=== PATIENT | male | born 1965 | race Two or more races ===

== ENCOUNTER → 2016-10-03 | Day surgery (SDC) | payer BC ==
--- NOTE | 2016-10-02 18:32 | Pre-Procedure Note/Attestation ---
Pre-Procedure Note/Attestation Complete Prior to Procedure Planned Procedure: right Procedure Narrative: Tonsillectomy Indications for Procedure Pre-Operative Diagnosis: Hypertrophied right tonsil Attestation I attest that I discussed the nature of the procedure; its benefits; risks and complications; and alternatives (and the risks and benefits of such alternatives ), prior to the procedure, with the patient (or the patient's legal security representative). I attest that, if there was a reasonable possibility of needing a blood transfusion, the patient (or the patient's legal security representative) was given the [facility] standardized written summary, pursuant to the [place] [employer] Blood Safety Act ([place] Health and Safety Code # 1645, as amended). I attest that I re-evaluated the patient just prior to the surgery and that there has been no change in the patient's H&P, which has been completed by pts. PMD and sent via fax by my staff at about 4PM today. I will cosign for Dr. Ana Allan MD. EMORY GARCIA Oct 02, 2016 18:32
[~2016-10-03] VITALS: Ht 175.3 cm; Wt 72.6 kg
[2016-10-03] VITALS (8 sets, daily range): BP systolic 114–144; BP diastolic 62–99
[~2016-10-03] MED LIST: Atropine Inj 1mg/10ml Syr IV PRN; Bupivacaine 0.5% Inj 30 ml vial INJ ONE; Bupivacaine w/Epi 0.5% 30ml Vial INJ ONE; Dexamethasone 4mg/ml vial IVP ONE; DiphenhydrAMINE 50mg/ml Inj IVP PRN; HYDROmorphone 1mg/ml Carpuject SUBQ PRN; Hydrogen Peroxide 120ml Bottle TOPIC ONE; Hydromorphone 0.5mg/0.5ml inj IVP PRN; Ketorolac 30mg Inj IV PRN; Ketorolac 60mg Inj IV PRN; LORazepam Inj 2mg/ml 1ml IV PRN; LR 1000ml 1,000 ML IVLG SCH; Labetalol 5mg/ml 20ml vial IV PRN; Lidocaine 1% 10mg/ml/Epi 0.005mg/ml 30ml vial INJ ONE; Meperidine 25mg/ml Inj IV PRN; Metoclopramide 10mg/2ml Inj IVP PRN; Midazolam 2mg/2ml Inj IVP PRN; NKM; NS Irrig 1000ml IRRIG ONE; Norco 5mg/325mg tab ORAL PRN; Norco 7.5mg/325mg tab ORAL PRN; Oxycodone/Acetaminophen 5-325 ORAL PRN; Thrombin 5000 units TOPIC ONE; ceFAZolin sod 1 GM in D5W 55 ML IV ONE; fentaNYL 100 mcg/2 mL IV PRN
--- NOTE | 2016-10-03 07:19 | Anethesia Preoperative Eval ---
Anesthesia Pre-op PMH/ROS General Date of Evaluation: Oct 03, 2016 Time of Evaluation: 07:31 Anesthesiologist: Charu ASA Score: ASA 2 Mallampati Score Class I : Soft palate, uvula, fauces, pillars visible Class II: Soft palate, uvula, fauces visible Class III: Soft palate, base of uvula visible Class IV: Only hard plate visible Mallampati Classification: Class II Surgeon: Alex Diagnosis: R Tonisillar Mass Surgical Procedure: R Tonsillar Biopsy Anesthesia History: none Family History: no anesthesia problems Allergies: Coded Allergies: GARLIC (Verified Adverse Reaction, Unknown, 10/02/16) upset astomach Medications: see eMAR Past Medical History Cardiovascular: Reports: arrhythmia - AFib Pulmonary: Reports: SIRI PSxH Narrative: Colonoscopies X3 Anesthesia Pre-op Phys. Exam Physician Exam Last Vital Signs Date Time Temp Pulse Resp B/P Pulse Ox O2 Delivery O2 Flow Rate FiO2 10/03/16 06:05 97.7 55 20 114/78 98 Room Air Constitutional: NAD Neurologic: CN 2-12 intact Cardiovascular: RRR Respiratory: CTA Gastrointestinal: S/NT/ND Airway Exam Mallampati Score: Class II MO: full ROM: full Teeth: intact Anesthesia Pre-op A/P Risk Assessment & Plan Assessment: ASA 2 Plan: GA, BIS, Glidescope Status Change Before Surgery: No Pre-Antibiotics Dru Gram Ancef IV Given Within 1 Hr of Incision: Yes Time Given: 07:46 Keenan Box MD Oct 03, 2016 07:19
--- NOTE | 2016-10-03 08:06 | Immediate Post-Op Evaluation ---
Immediate Post-Op Evalulation Immediate Post-Op Evalulation Procedure: R Tonsillectomy Date of Evaluation: Oct 03, 2016 Time of Evaluation: 08:50 IV Fluids: 600 LR Blood Products: 0 Estimated Blood Loss: 40 Urinary Output: 0 Blood Pressure Systolic: 127 Blood Pressure Diastolic: 77 Pulse Rate: 62 Respiratory Rate: 16 O2 Sat by Pulse Oximetry: 100 Temperature (Fahrenheit): 98.1 Pain Score (1-10): 2 Nausea: No Vomiting: No Complications 0 Patient Status: awake, reacts, patent, extubated, none Hydration Status: adequate Dru Gram Ancef IV Given Within 1 Hr of Incision: Yes Time Given: 07:46 Keenan Box MD Oct 03, 2016 08:06
--- NOTE | 2016-10-03 08:06 | 48 Hour Post Anesthesia Eval ---
Post Anesthesia Evaluation Procedure: R Tonsillectomy Date of Evaluation: Oct 03, 2016 Time of Evaluation: 11:57 Blood Pressure Systolic: 128 0: 78 Pulse Rate: 67 Respiratory Rate: 18 Temperature (Fahrenheit): 98.4 O2 Sat by Pulse Oximetry: 100 Airway: patent Nausea: No Vomiting: No Pain Intensity: 2 Hydration Status: adequate Cardiopulmonary Status: Stable Mental Status/LOC: patient returned to baseline Follow-up Care/Observations: 0 Post-Anesthesia Complications: 0 Follow-up care needed: ready to discharge Keenan Box MD Oct 03, 2016 08:06
--- NOTE | 2016-10-03 08:23 | Brief Operative Note ---
Immediate Post Operative Note Operative Note Pre-op Diagnosis: Hypertrophied right tonsil Procedure: right tonsilllectomy Post-op Diagnosis: pending results of frozen section Surgeon: Cristina Garcia Molecular Biology Professor: none Additional Surgeons: none Anesthesiologist: Charu Anesthesia: general Specimen: yes - right tonsil Complications: none Estimated Blood Loss: volume - 40 cc Packing: none Implant(s) used?: No EMORY GARCIA Oct 03, 2016 08:22
--- NOTE | 2016-10-03 08:25 | Discharge Instructions ---
Discharge Instructions Discharge Instructions Follow up with: Dr. Garcia next week-pt has appt already Diet: full liquid Resume Normal Activity?: No Activity: light activity Pneumonia Vaccine: pt refused vaccine Influenza Vaccine (Mar to Aug): pt refused vaccine Follow Up Orders pt has printed instructions given to him last week in office Return to Work/School on: October 17, 2016 For Surgical Patients Contact your physician for: bleeding, pain, tenderness, redness, swelling, yellowish discharge in the op. site For Congestive Heart Failure Reminder Report to your physician any weight gain of 5 pounds or more in one week. EMORY GARCIA Oct 03, 2016 08:25
--- NOTE | 2016-10-03 16:58 | Operative Note - Dictated ---
DATE OF OPERATION: 10/03/2016 SURGEON: Dmitry Johnson M.D. SHOEMAKER CUSTOM: None. ANESTHESIOLOGIST: Keenan Box M.D. ANESTHESIA: Oral endotracheal anesthesia. INDICATION FOR PROCEDURE: The patient with the unilaterally enlarged right tonsil, which has not calmed down over the course of three years ago. I actually had spoken to him three years ago about potentially removing this to make sure it is not a cancer. 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 PREOPERATIVE DIAGNOSIS: The patient with the unilaterally enlarged right tonsil, which has not calmed down over the course of three years ago. I actually had spoken to him three years ago about potentially removing this to make sure it is not a cancer. 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 POSTOPERATIVE DIAGNOSIS: Frozen section is not a cancer. PROCEDURE: 1. Right tonsillectomy. 2. Deep neck palpation. TECHNIQUE: The patient is prepped and draped in an usual manner vial oral endotracheal anesthesia. I initially injected with 1% lidocaine without epinephrine. This was done after time-out was performed and a McIvor mouth gag was placed. I then proceeded to grasp the superior pole of the right tonsil with a curved Allis. I pulled it medially and inferiorly and dissected at a setting of 14 from the anterior superior to an inferior posterior direction. I then put down the McIvor mouth gag to release any constriction of blood vessels for one minute. I then put it back up. There was no significant bleeding. I then proceeded to inject with Marcaine 0.5% with 1:200,000 epinephrine. Put down the McIvor mouth gag for another minute. Then put it back up. No bleeding. Area was suctioned dry. Sponge and needle count was correct and concurred by all in the room. ESTIMATED BLOOD LOSS: 40 mL. COUNTS: None. DRAINS: None. Dmitry Johnson M.D. DR: CHARLENE JOB#: [id number] CC:
== END | disposition home or self-care (01) ==
LOC: SUR 05:32 → EDBD 07:30
DX: J35.1 Hypertrophy of tonsils (principal); A60.00 Herpesviral infection of urogenital system, unspecified; G47.33 Obstructive sleep apnea (adult) (pediatric); E78.5 Hyperlipidemia, unspecified; I48.0 Paroxysmal atrial fibrillation; K64.9 Unspecified hemorrhoids; Z86.010 Personal history of colon polyps; Z91.018 Allergy to other foods
CPT/HCPCS: 94003; 94150